=== PATIENT | female | born 1975 | race Caucasian/White ===

== ENCOUNTER 2017-07-05 11:22 | Day surgery (SDC) | payer OTHER ==
[~2017-07-05] VITALS: Ht 154.9 cm; Wt 85.0 kg
[~2017-07-05 11:22] MED LIST: ACYC-57; DOXYCYCLINE 100 MG ONE; ESCI20TA10; FENTANYL PF 100 MCG/2ML ONE; LEVO125T5; METHYLERGONOVINE 0.2 MG/ML IM ONE; MIDAZOLAM 1 MG/ML, 2ML ONE; MISOPROSTOL 200 MCG TABLET ONE; OXYTOCIN 10 UNITS/ML, 1ML ONE; PROPOFOL 10 MG/ML, 20ML ONE; SILVER NITRATE STICK TP ONE
[2017-07-05] MEDS ORDERED: LACTATED RINGERS 1,000 ML IV SCH (11:34)
[2017-07-05] MEDS ORDERED: LEVO137T3 PO (11:40)
[2017-07-05] MEDS ORDERED: METF500T4 PO (11:40)
[2017-07-05] MEDS ORDERED: ASPI-496 PO (11:40)
[2017-07-05 11:58] VITALS: BP 122/82
[2017-07-05] MEDS ORDERED: ONDANSETRON 2MG/ML, 2ML IVPush PRN (12:00)
[2017-07-05] MEDS ORDERED: MEPERIDINE/PF 25MG/0.5ML IVPush PRN (12:00)
[2017-07-05] MEDS ORDERED: PROMETHAZINE 12.5 MG SUPP PR PRN (12:00)
[2017-07-05] MEDS ORDERED: OXYcodone 5 MG/5 ML ORAL.SOL UDC PO PRN (12:00)
[2017-07-05] MEDS ORDERED: ACETAMINOPHEN 325 MG TABLET PO PRN (12:00)
[2017-07-05] MEDS ORDERED: hydrALAzine 20 MG/ML, 1ML IV PRN (12:00)
[2017-07-05] MEDS ORDERED: HYDROmorphone 1 MG/ML, 1ML IV PRN (12:00)
[2017-07-05] MEDS ORDERED: LABETALOL 5MG/ML, 20ML IV PRN (12:00)
[2017-07-05] MEDS ORDERED: FENTANYL PF 100 MCG/2ML IV PRN (12:00)
[2017-07-05] MEDS ORDERED: DEXAMETHASONE 4 MG/ML, 1ML ONE (12:35)
[2017-07-05] MEDS ORDERED: ONDANSETRON 2MG/ML, 2ML ONE (12:51)
[2017-07-05] MEDS ORDERED: KETOROLAC 30 MG/1 ML ONE (13:00)
[2017-07-05] MEDS ORDERED: SILVER NITRATE STICK TP ONE (13:18)
[2017-07-05] MEDS ORDERED: OXYcodone 5 MG/5 ML ORAL.SOL UDC ONE (13:23)
[2017-07-05] MEDS ORDERED: ACETAMINOPHEN 650 MG/20.3 ML UDC ONE (13:23)
== END 2017-07-05 15:55 | disposition home or self-care (01) ==
LOC: OUT 11:22
PROVIDERS: ATTEND Obstetrics & Gynecology
DX: O02.1 Missed abortion (principal); Z3A.08 8 weeks gestation of pregnancy
CPT/HCPCS: 59820; 88305; J1100; J1885; J2250; J2405; J2704; J3010; J7120; J2210; J2590